=== PATIENT | male | born 1950 | race Caucasian/White ===

== ENCOUNTER 2018-02-24 10:37 | Day surgery (SDC) | payer MEDICARE ==
[2018-02-22 15:43] VITALS: BMI 24.3
[~2018-02-24 10:37] MED LIST: LACTATED RINGERS 1,000 ML IV SCH
[2018-02-24 10:56] VITALS: TEMP 97.9
[2018-02-24] MEDS ORDERED: PROPOFOL 10 MG/ML 20 ML VIAL IV ONE (11:24)
--- NOTE | 2018-02-24 11:28 | P.GSHP ---
History of Present Illness H&P Date: 02/24/18 Chief Complaint: Screening colonoscopy This is a 68-year-old male presents today for screening colonoscopy. Patient denies any significant complaints.. Past Medical History Past Medical History: Cancer, Osteoarthritis (OA) Additional Past Medical History / Comment(s): hx BASAL CELL cancer History of Any Multi-Drug Resistant Organisms: None Reported Past Surgical History: Hernia Repair, Joint Replacement, Orthopedic Surgery Additional Past Surgical History / Comment(s): FLAP GRAFT/NOSE. skin cancer removed from back and forearm. left knee replacement, arthroscopy left knee,. Past Anesthesia/Blood Transfusion Reactions: No Reported Reaction Smoking Status: Former smoker - Past Family History Mother Family Medical History: Cancer Brother(s) Family Medical History: Deep Vein Thrombosis (DVT), Pulmonary Embolus Medications and Allergies Home Medications Medication Instructions Recorded Confirmed Type Multivitamin [Men's Multi-Vitamin] 1 tab PO DAILY 07/01/15 02/24/18 History Allergies Allergy/AdvReac Type Severity Reaction Status Date / Time No Known Allergies Allergy Verified 02/24/18 10:46 Surgical - Exam Vital Signs Temp Pulse Resp BP Pulse Ox 97.9 F 77 17 153/73 96 02/24/18 10:55 02/24/18 10:55 02/24/18 10:55 02/24/18 10:55 02/24/18 10:55 - General well developed, well nourished, no distress - Eyes PERRL - ENT normal pinna - Neck no masses - Respiratory normal expansion - Cardiovascular Rhythm: regular - Abdomen Abdomen: soft, non tender Assessment and Plan Assessment: We'll perform screening colonoscopy.
--- NOTE | 2018-02-24 11:46 | P.OP ---
Date of Procedure: 02/24/18 Preoperative Diagnosis: Screening colonoscopy Postoperative Diagnosis: Diverticulosis Sigmoid colon polyp Transverse colon polyp Procedure(s) Performed: Colonoscopy Anesthesia: MAC Surgeon: Hernan Monte Pathology: other (Transverse colon polyp, sigmoid colon polyp) Condition: stable Disposition: PACU Description of Procedure: Patient's placed on the endoscopy table lateral position. He received IV sedation. Digital rectal exam was performed which revealed no abnormalities. The flexible colonoscope was then placed patient anus passed throughout the entire colon. The ileocecal valve visualized. The cecum, ascending colon appeared normal. In the transverse colon there was a small polyp this was removed with the cold forcep. Scope summer back in the descending and sigmoid colon there was moderate diverticular changes. The; the polyp seen in this removed with a forcep. The scope was then withdrawn into the rectum and this appeared normal. Scope was withdrawn for patient.
[2018-02-24 11:50] VITALS: RESP 18
[2018-02-24 12:13] VITALS: BP 136/72; PULSE 74
== END 2018-02-24 12:39 | disposition home or self-care (01) ==
LOC: ORWHC2ENDO 10:37
PROVIDERS: ATTEND Surgery
DX: Z12.11 Encounter for screening for malignant neoplasm of colon (principal); D12.3 Benign neoplasm of transverse colon; K63.5 Polyp of colon; K57.30 Diverticulosis of large intestine without perforation or abscess without bleeding; M19.90 Unspecified osteoarthritis, unspecified site; Z85.828 Personal history of other malignant neoplasm of skin; Z87.891 Personal history of nicotine dependence; Z96.652 Presence of left artificial knee joint
CPT/HCPCS: 88305; 45380; J2704

== ENCOUNTER → 2020-09-26 | Outpatient (CLI) | payer MEDICARE | END | disposition home or self-care (01) | LOC: LABWHC1 09:56 | PROVIDERS: ATTEND Urology | DX: C61 Malignant neoplasm of prostate (principal) | CPT/HCPCS: 36415; 84153 ==

== ENCOUNTER → 2021-03-05 | Outpatient (CLI) | payer MEDICARE | END | disposition home or self-care (01) | LOC: LABWHC1 10:22 | PROVIDERS: ATTEND Urology | DX: C61 Malignant neoplasm of prostate (principal) | CPT/HCPCS: 36415; 84153 ==

== ENCOUNTER → 2021-06-23 | Outpatient (CLI) | payer MEDICARE | END | disposition home or self-care (01) | LOC: LABWHC1 08:55 | PROVIDERS: ATTEND Urology | DX: C61 Malignant neoplasm of prostate (principal) | CPT/HCPCS: 36415; 84153 ==

== ENCOUNTER → 2021-08-04 | Outpatient (CLI) | payer MEDICARE ==
--- NOTE | 2021-08-05 07:01 | MR ---
EXAMINATION TYPE: MR Prostate wo/w con DATE OF EXAM: 08/04/2021 COMPARISON: None. INDICATION: Prostate cancer PSA: 5.70 ng/ml on March 05, 2021 Recent Biopsy and Date: June 28, 2020 Pathology Report (If Applicable): Right lateral mid focal high-grade prostatic intraepithelial neopla tanya. Right mid atypical small acinar proliferation and PIN. Left lateral apex adenocarcinoma Reddick grade 3+3 = 6, 20% of tissue measuring 1.5 mm length. TECHNIQUE: Examination was performed using a 3T MRI without an endorectal coil. Multiparametric imaging was perf ormed with T2 mutliplanar sequences, axial diffusion weighted imaging and dynamic contrast enhanced i maging, utilizing 7.5 mL intravenous Gadavist gadolinium contrast. FINDINGS: There is no clinically significant cancer identified. PROSTATE VOLUME: 4.9 cm SI x 4.4 cm AP x 5.7 cm LR Vol= 64.35 cc Predicted PSA equals 7.722 PSA DENSITY: 0.09 ng/ml/cc Prostate gland is overall enlarged in size. No distinct areas of diminished signal on ABC mapping or increased signal on diffusion-weighted imaging in the peripheral zone. Transitional zone shows overal l heterogeneity without suspicious hypointense lesions on T2-weighted images or areas of restricted d iffusion. Bladder not greatly distended with mild wall thickening and trabeculation. Seminal vesicles appear wi thin normal limits axial image 29. No pelvic adenopathy is seen. Visualized osseous structures are intact. Small fat-containing right inguinal hernia. Diverticula in the sigmoid colon are present. IMPRESSION: A focus of clinically significant cancer is not identified. Enlarged prostate consistent with BPH Highest Assessment Category: 1 MRI Stage: T1c N0 M0 based on review of pelvic images. False negative rates for MRI range from 5-20% depending on risk profile. Assessment Categories: 1 ? Very low (clinically significant cancer is highly unlikely to be present) 2 ? Low (clinically significant cancer is unlikely to be present) 3 ? Intermediate (the presence of clinically significant cancer is equivocal) 4 ? High (clinically significant cancer is likely to be present) 5 ? Very high (clinically significant cancer is highly likely to be present)
== END | disposition home or self-care (01) ==
LOC: RADMRIMAIN 07:11
PROVIDERS: ATTEND Urology
DX: C61 Malignant neoplasm of prostate (principal); N40.0 Benign prostatic hyperplasia without lower urinary tract symptoms
CPT/HCPCS: 72197; A9585

== ENCOUNTER → 2021-12-30 | Outpatient (CLI) | payer MEDICARE | END | disposition home or self-care (01) | LOC: LABWHC1 09:20 | PROVIDERS: ATTEND Urology | DX: C61 Malignant neoplasm of prostate (principal) | CPT/HCPCS: 36415; 84153 ==

== ENCOUNTER → 2022-06-30 | Outpatient (CLI) | payer MEDICARE | END | disposition home or self-care (01) | LOC: LABWHC1 08:29 | PROVIDERS: ATTEND Urology | DX: C61 Malignant neoplasm of prostate (principal) | CPT/HCPCS: 36415; 84153 ==

== ENCOUNTER → 2022-11-20 | Outpatient (CLI) | payer MEDICARE | END | disposition home or self-care (01) | LOC: LABWHC1 10:50 | PROVIDERS: ATTEND Urology | DX: C61 Malignant neoplasm of prostate (principal) | CPT/HCPCS: 36415; 84153 ==

== ENCOUNTER → 2022-12-31 | Outpatient (CLI) | payer MEDICARE ==
[2022-12-31 19:11] LABS: Basophils # (A) 0.03 X 10*3/uL (0.00-0.10); Basophils % (A) 0.5 %; Eosinophils # (A) 0.16 X 10*3/uL (0.04-0.35); Eosinophils % (A) 2.7 %; HCT 39.9 % (39.6-50.0); HGB 13.3 d/dL (13.0-17.0); Lymphocytes # (A) 1.62 X 10*3/uL (0.90-5.00); Lymphocytes % (A) 27.4 %; MCH 31.5 pg (27.0-32.0); MCHC 33.3 d/dL (32.0-37.0); MCV 94.5 FL (80.0-97.0); Monocytes # (A) 0.52 X 10*3/uL (0.20-1.00); Monocytes % (A) 8.8 %; NRBC Per 100 WBC 0 X 10*3/uL (0.00-0.01); Neutrophils # (A) 3.56 X 10*3/uL (1.80-7.70); Neutrophils % (A) 60.1 %; Platelet Count 307 X 10*3/uL (140-440); RBC 4.22 X 10*6/uL (4.40-5.60); RDW 12.6 % (11.5-14.5); WBC 5.92 X 10*3/uL (4.50-10.00)
[2022-12-31 20:59] LABS: BUN/Creat Ratio 19.75 Ratio (12.00-20.00); Blood Urea Nitrogen 15.8 mg/dL (9.0-27.0); Carbon Dioxide 24.8 mmol/L (21.6-31.8); Chloride 103 mmol/L (96-109); Glucose 89 mg/dL (70-110); Potassium 4.4 mmol/L (3.5-5.5); Sodium 141 mmol/L (135-145)
== END | disposition home or self-care (01) ==
LOC: LABPAT 13:17
PROVIDERS: ATTEND Urology
DX: Z01.812 Encounter for preprocedural laboratory examination (principal); C61 Malignant neoplasm of prostate
CPT/HCPCS: 80048; 85025; 86850; 86900; 86901

== ENCOUNTER 2023-01-07 05:42 | Day surgery (SDC) | payer MEDICARE ==
--- NOTE | 2023-01-06 22:15 | P.GSHP ---
History of Present Illness H&P Date: 01/06/23 Chief Complaint: Prostate Cancer The patient is a 72-year-old white male diagnosed with Irene 6 adenocarcinoma of the prostate in June 2020. His PSA level at that time was 5.4. He chose active surveillance over treatment. An MRI of the prostate in July 2021 showed a prostate volume of 64 mL, with no suspicious lesions. He underwent a repeat prostate ultrasound with biopsies in July 2022. The prostate volume was 51 mL. 3 of 12 biopsies showed Irene 6/7 adenocarcinoma. Positive biopsies involved the right lateral mid, right lateral apex, and right apex. The left-sided biopsies were negative. The patient reports mild to moderate voiding symptoms and empties his bladder incompletely. He is taking tamsulosin for his voiding symptoms. The options of IMRT and surgery have been reviewed in detail with the patient, who has elected to undergo the latter. His most recent PSA level was 9.80. - Genitourinary (Male) Genitourinary: Reports nocturia Past Medical History Past Medical History: Cancer, Hyperlipidemia, Osteoarthritis (OA) Additional Past Medical History / Comment(s): hx BASAL CELL cancer, prostate ca, psa elevated in last 2 yrs, History of Any Multi-Drug Resistant Organisms: None Reported Past Surgical History: Hernia Repair, Joint Replacement, Orthopedic Surgery Additional Past Surgical History / Comment(s): FLAP GRAFT/NOSE. skin cancer removed from back and forearm. neck and face rt shoulder, left knee replacement, arthroscopy left knee,. Past Anesthesia/Blood Transfusion Reactions: No Reported Reaction Smoking Status: Former smoker - Past Family History Mother Family Medical History: Cancer Brother(s) Family Medical History: Deep Vein Thrombosis (DVT), Pulmonary Embolus Medications and Allergies Home Medications Medication Instructions Recorded Confirmed Type Multivitamin [Men's Multi-Vitamin] 1 tab PO DAILY 07/01/15 01/01/23 History Aspirin [Adult Low Dose Aspirin EC] 81 mg PO DAILY 01/01/23 01/01/23 History Atorvastatin Calcium 20 mg PO DAILY 01/01/23 01/01/23 History Vit B (Unk) 1 tab PO DAILY 01/01/23 01/01/23 History Vit C(Unk) 1 tab PO DAILY 01/01/23 01/01/23 History Vit D(Unk) 1 tab PO DAILY 10/13/23 10/13/23 History Vit E(Unk) 1 tab PO DAILY 01/01/23 01/01/23 History Allergies Allergy/AdvReac Type Severity Reaction Status Date / Time No Known Allergies Allergy Verified 01/01/23 11:37 Surgical - Exam - General well developed, well nourished, no distress - Respiratory normal respiratory effort - Abdomen Abdomen: soft, non tender, no guarding, no rigid, no rebound - Genitourinary normal penis with no external lesions, testicles non-tender - Rectum Rectum: normal sphincter tone, no masses, other (Prostate moderately enlarged but smooth) - Psychiatric oriented to time, oriented to person, oriented to place, speech is normal, memory intact Assessment and Plan (1) Malignant neoplasm of prostate Status: Acute Code(s): C61 - MALIGNANT NEOPLASM OF PROSTATE SNOMED Code(s): 081869155 Plan: Robotic-assisted laparoscopic prostatectomy. The procedure has been reviewed in detail with the patient. He is aware of potential risks, which include ane sthesia, bleeding, infection, intestinal injury (which may require a colostomy), ureteral injury, swelling of the penis post-operatively, bladder neck contracture, urethral stricture, lymphocele, post-operative ileus, thrombophlebitis, wound separation, and possible urinary fistula. In addition, I went into great detail concerning the possibility of postop urinary incontinence, which may fail to resolve. The patient has also been advised of the possibility of treatment failure, and the possible need for adjuvant therapy.
[~2023-01-07 05:42] MED LIST changes: +DEXAMETHASONE SOD PHOSPHATE 4 MG/ML 1 ML VIAL IV ONE; +HEPARIN SODIUM,PORCINE/PF 5,000 UNIT/0.5 ML SYRINGE SQ PRN; -LACTATED RINGERS 1,000 ML IV SCH; +LIDOCAINE 1% (10MG/ML) FOR IV START INTRADERMA PRN; +ONDANSETRON 4 MG/2 ML VIAL IVP ONE
[2023-01-07] MEDS: LACTATED RINGERS 1,000 ML IV SCH ×2 (06:12→15:02)
[2023-01-07] MEDS ORDERED: ONDANSETRON 4 MG/2 ML VIAL ONE (06:33)
[2023-01-07] MEDS ORDERED: MIDAZOLAM 2 MG/2 ML VIAL IV PRN (07:00)
[2023-01-07] MEDS ORDERED: fentaNYL (PF) 50 MCG/ML 2 ML AMP IV PRN (07:00)
[2023-01-07] MEDS ORDERED: fentaNYL (PF) 50 MCG/ML 2 ML AMP IVP ONE (07:04)
[2023-01-07] MEDS ORDERED: MIDAZOLAM 2 MG/2 ML VIAL IVP ONE (07:04)
[2023-01-07] MEDS ORDERED: BUPIVACAINE (PF) 0.25% 30 ML VIAL SQ ONE ×2 (07:33→12:20)
[2023-01-07] MEDS ORDERED: PROPOFOL 10 MG/ML 20 ML VIAL IV ONE (07:35)
[2023-01-07] MEDS ORDERED: ACETAMINOPHEN IV (For NPO) 1,000 MG/100 ML VIAL ONE (07:35)
[2023-01-07] MEDS ORDERED: DEXAMETHASONE SOD PHOSPHATE 4 MG/ML 1 ML VIAL ONE (07:35)
[2023-01-07] MEDS ORDERED: LIDOCAINE 1% INJ 10MG/ML (20 ML MDV) ONE (07:35)
[2023-01-07] MEDS ORDERED: ROCURONIUM 10 MG/ML (5 ML VIAL) IV ONE (07:35)
[2023-01-07] MEDS ORDERED: NEOSTIGMINE 1 MG/ML 10 ML VIAL ONE (07:35)
[2023-01-07] MEDS ORDERED: WATER FOR INJECTION, STERILE 10 ML VIAL IV ONE (07:35)
[2023-01-07] MEDS ORDERED: fentaNYL (PF) 50 MCG/ML 2 ML AMP ONE (07:35)
[2023-01-07] MEDS ORDERED: HYDROmorphone (PF) 1 MG/ML ONE (07:35)
[2023-01-07] MEDS ORDERED: ROPIVACAINE 5 MG/ML 30 ML VIAL ONE (07:35)
[2023-01-07] MEDS ORDERED: LABETALOL 5 MG/ML VIAL MDV ONE (07:35)
[2023-01-07] MEDS ORDERED: GLYCOPYRROLATE 0.2 MG/ML 2 ML VIAL ONE (07:35)
--- NOTE | 2023-01-07 08:12 | P.ANPRN ---
Procedure Note - Anesthesia - Nerve Block Performed Bilateral Erector Spinae Single Date of Procedure: 01/07/23 Procedure Start Time: 07:03 Procedure Stop Time: 07:11 Location of Patient: PreOp Indication: Acute Post-Operative Pain, Requested by Surgeon Specifically requested for management of pain by DrOttoniel: Jewel Kirk Sedation Type: Sedate with meaningful contact maintained Preparation: Sterile Prep Position: Prone Catheter: None Needle Types: Pajunk Needle Gauge: 20 Ultrasound used to visualize needle placement: Yes Ultrasound used to observe medication spread: Yes Injectate: 0.5% Ropivacaine (see comment for volume) (20 mL per side with Decadron 4 mg per side)
[2023-01-07] MEDS ORDERED: LACTATED RINGERS 1,000 ML IV ONE ×2 (12:15→14:08)
[2023-01-07] MEDS ORDERED: ONDANSETRON 4 MG/2 ML VIAL IVP PRN (12:39)
[2023-01-07] MEDS ORDERED: HYDROmorphone 1 MG/ML 1 ML SYRINGE IVP PRN (12:39)
--- NOTE | 2023-01-07 12:46 | P.OP ---
Date of Procedure: 01/07/23 Preoperative Diagnosis: Adenocarcinoma the prostate Postoperative Diagnosis: Same Procedure(s) Performed: Robotic-assisted laparoscopic prostatectomy (RALP) Anesthesia: R[place] Surgeon: Jewel Kirk Estimated Blood Loss (ml): 250 IV fluids (ml): 600 Pathology: other Condition: critical (Prostate and seminal vesicles) Disposition: PACU Indications for Procedure: The patient is a 72-year-old white male diagnosed with Irene 6 adenocarcinoma of the prostate in June 2020. His PSA level at that time was 5.4. He chose active surveillance over treatment. An MRI of the prostate in July 2021 showed a prostate volume of 64 mL, with no suspicious lesions. He underwent a repeat prostate ultrasound with biopsies in July 2022. The prostate volume was 51 mL. 3 of 12 biopsies showed [place] 6/7 adenocarcinoma. Positive biopsies involved the right lateral mid, right lateral apex, and right apex. The left-sided biopsies were negative. The patient reports mild to moderate voiding symptoms and empties his bladder incompletely. He is taking tamsulosin for his voiding symptoms. The options of IMRT and surgery have been reviewed in detail with the patient, who has elected to undergo the latter. His most recent PSA level was 9.80. Operative Findings: No evidence of extraprostatic disease. Description of Procedure: The patient was taken in the operating room and placed in the supine position. He was carefully positioned on a beanbag for stability. The abdomen and external genitalia were prepped and draped sterilely. A Napoles catheter was inserted. The Veress needle was passed through the anterior abdominal wall immediately cephalad to the umbilicus, and insufflation was performed to a pressure of 20 mm Hg. Once insufflation was performed, the Veress needle was removed and a supraumbilical incision was made, through which an 8 mm camera port was placed. Under camera guidance, 3 8 mm robotic ports were placed, 2 on the left and one on the right. A 12 mm port was placed on the right lateral side for use as an office administrative assistant port. A 5 mm port was placed to the right of the camera port for suction. The patient was placed in Trendelenburg position, and docking was then performed to the da Hugh system utilizing a 4-arm approach. The abdomen was examined. The sigmoid colon was mobilized out of the pelvis. The peritoneum was incised lateral to the medial umbilical ligaments bilaterally, exposing the pubis. The peritoneum was then incised across the midline, allowing the bladder flap to be taken down. The endopelvic fascia was opened bilaterally, and muscular attachments from the urogenital diaphragm were swept away from the prostate. The vesical neck was incised transversely, down to the lumen. It appeared that the prostate extended intravesically somewhat. The Napoles catheter was brought out through the anterior vesical neck incision and was used for traction. The posterior aspect of the vesical neck was incised, such that the full-thickness of the vesical neck was divided. The anterior layer of the Denonvilliers fascia was incised, exposing the vas deferens. Each were isolated and divided. Next, each of the seminal vesicles were dissected away from adjacent tissues, and vascular attachments were cauterized and divided. The posterior leaf of Denonvilliers fascia was incised transversely, allowing entry into the plane between the prostate and rectum. With lateral spreading, this plane was developed down to the apex. This exposed the lateral vascular pedicles bilaterally. These were clipped and divided in an antegrade fashion, down to t he apex. The remaining apical attachments were swept away from the prostate. The dorsal venous complex was incised, as well as periurethral tissue. At this point, only the urethra remained intact. This was transected immediately distal to the prostatic apex using cold scissors. The specimen was placed within a specimen bag. The dorsal venous complex was sutured using a V-Loc suture in a running fashion. The suture was passed through the periosteum of the pubis periurethral support. Attention was paid to the vesical neck. There appeared to be prostatic tissue adherent to the vesical neck. With careful dissection, this tissue was excised from the vesical neck, with care taken to delineate the plane between prostatic tissue and smooth muscle. Once this was accomplished, the vesical neck was examined to confirm the absence of any residual prostate tissue. 5-0 Vicryl sutures were placed in simple interrupted fashion to apryl the vesical neck mucosa. The resulting vesical neck was approximately the size of a fingertip, as desired. A second V-Loc suture was then used to place the Emeka stitch, incorporating the rhabdosphincter and the edge of Denonvilliers fascia. This al lowed the bladder to be taken down to the urethra, leaving the vesical neck immediately adjacent to the urethra. The vesicourethral anastomosis was then performed using a V-Loc suture in a running fashion. After completing the anastomosis, an 18-Norwegian Napoles catheter was placed and approximately 150 mL of 0.9 normal saline were instilled into the bladder. No extravasation of irrigant from the vesicourethral anastomosis was noted. Hemostasis was noted at this time to be excellent, and it was thus felt that a drain was unnecessary. The patient was returned to the supine position. Undocking was performed, and the specimen bag sutures were passed through the camera port. After removing all the ports and allowing all of the CO2 to be released from the peritoneal cavity, the camera port incision was enlarged to allow removal of the surgical specimen. The fascia of this incision was then closed using 0 PDS suture in a running fashion. Each of the skin incisions were then closed using 4-0 Monocryl suture in a subcuticular fashion. Marcaine was injected at each of the incision sites. Dermabond was applied to each incision. The Napoles catheter was connected to gravity drainage. All sponge and needle counts were correct. The patient tolerated the procedure well was taken to the recovery room in stable condition.
[2023-01-07] MEDS: HYDROmorphone 0.5 MG/0.5 ML SYRINGE IVP PRN ×2 (13:20→14:08)
[2023-01-07] MEDS: DEXTROSE 5%-0.45% NACL 1,000 ML IV SCH ×2 (17:20→18:34)
[2023-01-07] MEDS: KETOROLAC 15 MG/ML 1 ML VIAL IVP PRN (17:21)
[2023-01-07] MEDS: HEPARIN SODIUM,PORCINE 5,000 UNIT/ML 1 ML VIAL SQ SCH (21:56)
[2023-01-08 02:27] VITALS: PULSE 80
[2023-01-08] MEDS: KETOROLAC 15 MG/ML 1 ML VIAL IVP PRN ×2 (05:13→11:21)
[2023-01-08] MEDS: DEXTROSE 5%-0.45% NACL 1,000 ML IV SCH (05:14)
[2023-01-08] MEDS: HEPARIN SODIUM,PORCINE 5,000 UNIT/ML 1 ML VIAL SQ SCH (08:34)
--- NOTE | 2023-01-08 08:51 | P.DS ---
Providers Expected date of discharge: 01/08/23 Attending physician: Jewel Kirk Primary care physician: Marino Wallace - Discharge Diagnosis(es) (1) Malignant neoplasm of prostate Current Visit: No Status: Acute Hospital Course: On the day of admission, the patient underwent a robotic-assisted laparoscopic prostatectomy. The perioperative course was unremarkable. The patient remained afebrile with stable vital signs. Urine output was good. On the first postoperative morning, he tolerated breakfast. He denied nausea. He had ambulated without difficulty. He reported only mild incisional discomfort. On examination, the abdomen was soft and nondistended. The incisions were clean, dry, and intact. The Napoles catheter was draining clear yellow urine. Procedures: Robotic-assisted laparoscopic prostatectomy (RALP) on 01/07/2023. Patient Condition at Discharge: Good Plan - Discharge Summary Discharge Rx Participant: Yes New Discharge Prescriptions: New Ketorolac [Toradol] 10 mg PO Q6HR PRN #10 tab PRN Reason: Pain Ciprofloxacin HCl [Cipro] 250 mg PO Q12HR #6 tablet No Action Multivitamin [Men's Multi-Vitamin] 1 tab PO DAILY Atorvastatin Calcium 20 mg PO DAILY Vit D(Unk) 1 tab PO DAILY Vit B (Unk) 1 tab PO DAILY Vit E(Unk) 1 tab PO DAILY Vit C(Unk) 1 tab PO DAILY Aspirin [Adult Low Dose Aspirin EC] 81 mg PO DAILY Discharge Medication List Multivitamin [Men's Multi-Vitamin] 1 tab PO DAILY 07/01/15 [History] Aspirin [Adult Low Dose Aspirin EC] 81 mg PO DAILY 01/01/23 [History] Atorvastatin Calcium 20 mg PO DAILY 01/01/23 [History] Vit B (Unk) 1 tab PO DAILY 01/01/23 [History] Vit C(Unk) 1 tab PO DAILY 01/01/23 [History] Vit D(Unk) 1 tab PO DAILY 01/01/23 [History] Vit E(Unk) 1 tab PO DAILY 01/01/23 [History] Ciprofloxacin HCl [Cipro] 250 mg PO Q12HR #6 tablet 01/08/23 [Rx] Ketorolac [Toradol] 10 mg PO Q6HR PRN #10 tab 01/08/23 [Rx] Follow up Appointment(s)/Referral(s): Jewel Kirk MD [STAFF PHYSICIAN] - 01/15/23 Activity/Diet/Wound Care/Special Instructions: Discharge home with Napoles catheter. Instruct patient to use overnight drainage bag as well as urinary leg bag. Okay to shower. Diet as tolerated. No lifting, driving, or strenuous activity. Reassure patient that abdominal wall ecchymosis and penoscrotal swelling are normal. Instruct patient to begin taking antibiotics one day prior to Napoles catheter removal. Discharge Disposition: HOME SELF-CARE
[2023-01-08] MEDS ORDERED: ATORVASTATIN 20 MG TAB PO SCH (09:00)
[2023-01-08 14:04] VITALS: BP 112/67; RESP 16; TEMP 98.1
== END 2023-01-08 14:57 | disposition home or self-care (01) ==
LOC: OR 05:42 → 4SSUR 12:30 → OR 01-08 14:57
PROVIDERS: ATTEND Urology
DX: C61 Malignant neoplasm of prostate (principal); E78.5 Hyperlipidemia, unspecified; M19.90 Unspecified osteoarthritis, unspecified site; Z79.82 Long term (current) use of aspirin; Z79.899 Other long term (current) drug therapy; Z87.891 Personal history of nicotine dependence; Z96.652 Presence of left artificial knee joint
CPT/HCPCS: 55867; S2900; 64999

== ENCOUNTER → 2023-02-01 | Outpatient (CLI) | payer MEDICARE | END | disposition home or self-care (01) | LOC: LABWHC1 07:09 | PROVIDERS: ATTEND Urology | DX: C61 Malignant neoplasm of prostate (principal) | CPT/HCPCS: 36415; 84153 ==

== ENCOUNTER → 2023-03-20 | Outpatient (CLI) | payer MEDICARE | END | disposition home or self-care (01) | LOC: LABWHC1 07:48 | PROVIDERS: ATTEND Urology | DX: C61 Malignant neoplasm of prostate (principal) | CPT/HCPCS: 36415; 84153 ==

== ENCOUNTER → 2023-06-25 | Outpatient (CLI) | payer MEDICARE | END | disposition home or self-care (01) | LOC: LABWHC1 07:16 | PROVIDERS: ATTEND Urology | DX: C61 Malignant neoplasm of prostate (principal) | CPT/HCPCS: 36415; 84153 ==

== ENCOUNTER 2023-07-15 09:08 | Day surgery (SDC) | payer MEDICARE ==
[2023-07-15] MEDS: LACTATED RINGERS 1,000 ML IV SCH (10:00)
[2023-07-15 10:12] VITALS: RESP 16; TEMP 97.5
[2023-07-15] MEDS ORDERED: PROPOFOL 10 MG/ML 20 ML VIAL IV ONE (10:18)
[2023-07-15] MEDS ORDERED: LIDOCAINE 1% INJ 10MG/ML (20 ML MDV) ONE (10:18)
--- NOTE | 2023-07-15 10:20 | P.GSHP ---
History of Present Illness H&P Date: 07/15/23 Chief Complaint: screening colonoscopy cyst 73-year-old male bpresents for for screening colonoscopy patient denies a significant GI complaints. Past Medical History Past Medical History: Cancer, Eye Disorder, Hyperlipidemia, Osteoarthritis (OA) Additional Past Medical History / Comment(s): hx basal cell cancer - nose, face, bilt. arms, back, bilat. legs; glaucoma, prostate cancer History of Any Multi-Drug Resistant Organisms: None Reported Past Surgical History: Hernia Repair, Joint Replacement, Orthopedic Surgery, Prostate Surgery Additional Past Surgical History / Comment(s): FLAP GRAFT/NOSE. skin cancer removed from back and forearm. neck and face rt shoulder, Lt. inguinal hernia repair, Lt. knee arthroscopy, Lt. TKA, robotic-assisted lap prostatectomy 01/11. Past Anesthesia/Blood Transfusion Reactions: No Reported Reaction Smoking Status: Former smoker - Past Family History Mother Family Medical History: Cancer Brother(s) Family Medical History: Deep Vein Thrombosis (DVT), Pulmonary Embolus Medications and Allergies Home Medications Medication Instructions Recorded Confirmed Type Multivitamin [Men's Multi-Vitamin] 1 tab PO DAILY 07/01/15 07/14/23 History Aspirin [Adult Low Dose Aspirin EC] 81 mg PO DAILY 01/01/23 07/14/23 History Atorvastatin Calcium 20 mg PO DAILY 01/01/23 07/15/23 History Vit B (Unk) 1 tab PO DAILY 01/01/23 07/14/23 History Vit C(Unk) 1 tab PO DAILY 01/01/23 07/14/23 History Vit D(Unk) 1 tab PO DAILY 01/01/23 07/14/23 History Vit E(Unk) 1 tab PO DAILY 01/01/23 07/14/23 History Amoxicillin 500 mg PO DIRECTED PRN 07/14/23 07/15/23 History Allergies Allergy/AdvReac Type Severity Reaction Status Date / Time No Known Allergies Allergy Verified 07/15/23 09:46 Surgical - Exam Vital Signs Temp Pulse Resp BP Pulse Ox 97.5 F L 81 16 145/68 94 L 07/15/23 09:53 07/15/23 09:53 07/15/23 09:53 07/15/23 09:53 07/15/23 09:53 - General well developed, well nourished, no distress - Eyes PERRL - ENT normal pinna - Neck no masses - Respiratory normal expansion - Cardiovascular Rhythm: regular - Abdomen Abdomen: soft, non tender Assessment and Plan Plan: we'll perform screening colonoscopy
--- NOTE | 2023-07-15 10:40 | P.OP ---
Date of Procedure: 07/15/23 Preoperative Diagnosis: screening colonoscopy Postoperative Diagnosis: diverticulosis Procedure(s) Performed: colonoscopy Anesthesia: MAC Surgeon: Hernan Monte Pathology: none sent Condition: stable Disposition: PACU Description of Procedure: the patient's placed on the endoscopy table in the lateral position. He received IV sedation. Digital rectal exam was performed. This revealed no abnormalities. The flexible colonoscope was then placed patient anus and passed throughout the entire colon. The ileocecal valve was visualized. The cecum appeared normal. The right colon appeared normal. In the transverse colon a few scattered diverticula. In the proximal left colon there is a sessile polyp. This was removed with a cold forcep. In the descending and; was moderate diverticular changes. Scope was then brought back the rectum and this appeared normal. Scope withdrawn for patient.
[2023-07-15 11:00] VITALS: BP 129/77; PULSE 76
== END 2023-07-15 11:17 | disposition home or self-care (01) ==
LOC: ORWHC2ENDO 09:08
PROVIDERS: ATTEND Surgery
DX: Z12.11 Encounter for screening for malignant neoplasm of colon (principal); K63.5 Polyp of colon; K57.30 Diverticulosis of large intestine without perforation or abscess without bleeding; E78.5 Hyperlipidemia, unspecified; M19.90 Unspecified osteoarthritis, unspecified site; Z85.46 Personal history of malignant neoplasm of prostate; Z90.89 Acquired absence of other organs; Z85.828 Personal history of other malignant neoplasm of skin; Z96.652 Presence of left artificial knee joint; Z87.891 Personal history of nicotine dependence; Z82.3 Family history of stroke; Z79.82 Long term (current) use of aspirin; Z79.899 Other long term (current) drug therapy
CPT/HCPCS: 88305; 45380; J2001; J2704

== ENCOUNTER → 2023-09-21 | Outpatient (CLI) | payer MEDICARE | END | disposition home or self-care (01) | LOC: LABWHC1 10:59 | PROVIDERS: ATTEND Urology | DX: C61 Malignant neoplasm of prostate (principal) | CPT/HCPCS: 36415; 84153 ==

== ENCOUNTER → 2024-01-10 | Outpatient (CLI) | payer MEDICARE | END | disposition home or self-care (01) | LOC: LABWHC1 07:01 | PROVIDERS: ATTEND Urology | DX: C61 Malignant neoplasm of prostate (principal) | CPT/HCPCS: 36415; 84153 ==

== ENCOUNTER → 2024-07-18 | Outpatient (CLI) | payer MEDICARE | END | disposition home or self-care (01) | LOC: LABWHC1 09:41 | PROVIDERS: ATTEND Urology | DX: C61 Malignant neoplasm of prostate (principal) | CPT/HCPCS: 36415; 84153 ==